=== PATIENT | female | born 1955 | race Caucasian/White ===

== ENCOUNTER → 2018-07-26 11:49 | Outpatient (CLI) | payer MEDICARE, OTHER, SELFPAY ==
--- NOTE | 2018-07-26 | DI.MG.S_ITS ---
BILATERAL DIGITAL SCREENING MAMMOGRAM 3D/2D WITH CAD: 07/26/2018 CLINICAL: Routine screening. Comparison is made to exams dated: 07/31/2016 mammogram, 08/15/2013 mammogram, and 04/13/2012 mammogram - [facility]. There are scattered fibroglandular elements in both breasts. Current study was also evaluated with a Computer Aided Detection (CAD) system. No significant masses, calcifications, or other findings are seen in either breast. There has been no significant interval change. IMPRESSION: NEGATIVE There is no mammographic evidence of malignancy. A 1 year screening mammogram is recommended. This exam was interpreted at Station ID: [id number]. NOTE: For mammograms, a report in lay terms will be sent to the patient. Approximately 15% of breast malignancies will not be visualized mammographically. In the management of a palpable breast mass, a negative mammogram must not discourage biopsy of a clinically suspicious lesion. Electronically Signed By: Lore frye/jazmin:07/26/2018 14:33:20 letter sent: Normal Exam ACR BI-RADS Category 1: Negative 3341F
== END ==
PROVIDERS: PCP Family Medicine; Visit Provider Family Medicine
DX: Z12.31 Encounter for screening mammogram for malignant neoplasm of breast (principal)
CPT/HCPCS: 77063; 77067

== ENCOUNTER → 2020-06-21 11:32 | Outpatient (CLI) | payer MEDICARE, OTHER, SELFPAY ==
[2020-06-24 07:44] LABS: COVID19 Sendout Not Detected (Not Detect)
== END ==
PROVIDERS: PCP Family Medicine; Visit Provider Physician Assistant
DX: Z11.59 Encounter for screening for other viral diseases (principal)
CPT/HCPCS: 87635

== ENCOUNTER 2020-06-24 10:25 | Day surgery (SDC) | payer MEDICARE, OTHER, SELFPAY ==
[2020-06-19 13:19] VITALS: BMI 36.3
[2020-06-24] VITALS (8 sets, daily range): BP systolic 98–146; BP diastolic 64–83; PULSE 64–96; RESP 12–17; TEMP 36.1–36.8; O2SAT 96–97; BMI 35.4
--- NOTE | 2020-06-24 | PATH_ITS ---
[facility] Accession Number: [id number] . 01 Material submitted: . PART A: endocervix - ENDOCERVICAL SWAB/BRUSHING PART B: endometrium - ENDOMETRIAL . 02 Diagnosis: A. Endocervix, Biopsy: Endocervical mucosa with features suggestive of nabothian cyst. No evidence of neoplasm. . B. Endometrium, Biopsy: Endometrial mucosa with cystic atrophy. Prominent smooth muscle bundles, suggestive of submucosal leiomyoma. Negative for atypical hyperplasia or malignancy. MRV 06/26/2020 1234 Local . 02 Electronically signed: . Etienne Dubon MD, PhD, Pathologist NPI- [id number] . 01 Gross description: . A. Received in formalin, labeled endocervical, and consists of multiple miranda-pink fragments of soft tissue admixed with mucus and clotted blood measuring 2.5 x 2.5 x 0.5 cm in aggregate. The specimen is filtered and entirely submitted in cassette A1. B. Received in formalin, labeled endometrial, and consists of multiple miranda-pink fragments of soft tissue measuring 3.0 x 3.0 x1.0 cm in aggregate. The specimen is entirely submitted in cassettes B1-B2. (EA:[id number]) /MRV 06/25/2020 1544 Local . 02 Pathologist provided ICD-10: N95.0 . 02 CPT . 153878, [id number] Performed at: 01 [facility] [address], [place], [place] [id number] MD Bradley Lu MD Phone: [phone] Performed at: [address] [facility] [address] [place], [place] [id number] MD Morelia Whitney MD Phone: [phone]
[2020-06-24] MEDS: LACTATED RINGERS 1,000 ML 100 ML IV (10:56)
--- NOTE | 2020-06-24 12:11 | PM.PREOP ---
Pre-operative Note COVID-19 COVID-19 status: Negative Result date/Date tested (Pos, Neg/Pending): 06/21/20 Interval Note History & Physical reviewed/Exam performed by Physician: Yes Changes to H&P: No H&P completed within 30 days and has changed as indicated here:: 06/18/20
--- NOTE | 2020-06-24 12:28 | SUR.OPER ---
Lithotomy on padded OR bed, head on pillow, arms secured on padded arm boards at <90 degrees abduction. Legs secured in padded yellow fins stirrups.
--- NOTE | 2020-06-24 13:16 | P.OP_ITS ---
Operative Date/Time/Diagnoses Date of procedure: 06/24/20 Time of procedure: 13:16 Pre-op diagnosis: Postmenopausal bleeding Endometrial hyperplasia Endocervical polyp Post-op diagnosis: same Procedure & Clinicians Procedure: Procedures Operation Date: 06/24/20 11:45 Actual Procedures Side Surgeon elder Medina&Stefany Hysteroscopy Polypectomies Iris Lord MD Indications: Postmenopausal bleeding Endometrial hyperplasia by ultrasound Endocervical polyp Surgeon: Iris Lord Anesthesia Type: General (LMA) Operative Notes Findings: Seven week size anteverted uterus Multiple polyps/fibroids in the uterus Endocervical polyp Closure Type: not applicable Specimen(s): endometrial curettings, endometrial polyp and other (Endocervical curetting/endocervical polyp) Estimated blood loss (mL): 10 Blood products transfused: none Procedure in detail: After informed consent was obtained, the patient was taken to the operating room where she was placed in the dorsal supine position. After adequate LMA general anesthesia was achieved, she was placed in the dorsal lithotomy position, and prepped and draped in the usual sterile fashion. A time-out was performed. A bivalve speculum was placed into the vagina and the anterior lip of the cervix grasped with a single-tooth tenaculum. Sharp curettage of the endocervical canal was performed. The cervical os was sequentially dilated until the hysteroscope could pass easily into the endometrial cavity. Initial inspection with the hysteroscope revealed approximately 8 fibroids/polyps. The hysteroscope was removed. The polyp forceps were used to remove a large number of polyps. When the hysteroscope passed easily into the endometrial cavity again, there were no masses visible. Sharp curettage of the endometrial canal was performed. Using the 15 mm loop with settings at 60 cut and 40 coag, the endocervical polyp was excised. The base of the cervix was cauterized with the Bovie for hemostasis. The single- tooth tenaculum was removed from the anterior lip of the cervix. The bivalve speculum was removed from the vagina. Sponge, lap, and instrument counts were correct x2. The patient tolerated the procedure well, and was taken to PACU in stable condition. Complications: none Post-operative Condition: stable Disposition: PACU Plan for aftercare: Home after recovery
--- NOTE | 2020-06-24 14:26 | SUR.PHASEII ---
1418-Pt dcd via wc in stable condition
== END 2020-06-24 14:18 | disposition home or self-care (01) ==
PROVIDERS: PCP Family Medicine; Referring Provider Family Medicine; Visit Provider Obstetrics & Gynecology
PROC: 0UDB8ZZ Extraction of Endometrium, Via Natural or Artificial Opening Endoscopic (ICD-10-PCS; CPT 58558; principal; 2020-06-24 11:45)
DX: N84.1 Polyp of cervix uteri (principal); N84.0 Polyp of corpus uteri
CPT/HCPCS: 58558; J1100; J1885; J2405; J2704; J3010

== ENCOUNTER → 2020-07-06 11:18 | Outpatient (CLI) | payer MEDICARE, OTHER, SELFPAY ==
[2020-07-06 11:40] LABS: COVID19 -Nasal RAPID Negative (Negative)
== END ==
PROVIDERS: PCP Family Medicine; Visit Provider Physician Assistant
DX: Z11.59 Encounter for screening for other viral diseases (principal)
CPT/HCPCS: 87635

== ENCOUNTER → 2020-07-09 11:48 | Outpatient (CLI) | payer MEDICARE, OTHER, SELFPAY ==
--- NOTE | 2020-07-09 | DI.MG.S_ITS ---
BILATERAL DIGITAL SCREENING MAMMOGRAM 3D/2D WITH CAD: 07/09/2020 CLINICAL: Routine screening. Family history of breast cancer. Comparison is made to exams dated: 07/26/2018 mammogram, 07/31/2016 mammogram, and 08/15/2013 mammogram - [facility]. The tissue of both breasts is predominantly fatty. Current study was also evaluated with a Computer Aided Detection (CAD) system. No significant masses, calcifications, or other findings are seen in either breast. There has been no significant interval change. IMPRESSION: NEGATIVE There is no mammographic evidence of malignancy. A 1 year screening mammogram is recommended. This exam was interpreted at Station ID: [id number]. NOTE: For mammograms, a report in lay terms will be sent to the patient. Approximately 15% of breast malignancies will not be visualized mammographically. In the management of a palpable breast mass, a negative mammogram must not discourage biopsy of a clinically suspicious lesion. Electronically Signed By: Lore frye/jazmin:07/16/2020 11:28:50 letter sent: Normal Exam ACR BI-RADS Category 1: Negative 3341F
== END ==
PROVIDERS: PCP Family Medicine; Referring Provider Family Medicine; Visit Provider Family Medicine
DX: Z12.31 Encounter for screening mammogram for malignant neoplasm of breast (principal); Z80.3 Family history of malignant neoplasm of breast
CPT/HCPCS: 77063; 77067

== ENCOUNTER → 2020-09-10 12:05 | Outpatient (CLI) | payer MEDICARE, OTHER, SELFPAY ==
[2020-09-10] MEDS: COVID-19 VACC #1, MRNA(MOD) 100 MCG/0.5 ML VIAL IM (12:13)
== END ==
PROVIDERS: PCP Family Medicine; Visit Provider Internal Medicine
DX: Z23 Encounter for immunization (principal)
CPT/HCPCS: 0011A; 91301

== ENCOUNTER → 2020-10-08 12:17 | Outpatient (CLI) | payer MEDICARE, OTHER, SELFPAY ==
[2020-10-08] MEDS: COVID-19 VACC #2, MRNA(MOD) 100 MCG/0.5 ML VIAL IM (12:25)
== END ==
PROVIDERS: PCP Family Medicine; Visit Provider Internal Medicine
DX: Z23 Encounter for immunization (principal)
CPT/HCPCS: 0012A; 91301

== ENCOUNTER → 2022-11-23 | Outpatient (CLI) | payer MEDICARE, OTHER, SELFPAY ==
--- NOTE | 2022-11-23 | DI.MG.S_ITS ---
BILATERAL DIGITAL SCREENING MAMMOGRAM 3D/2D WITH CAD: 11/23/2022 CLINICAL: Routine screening. Family history of breast cancer. Comparison is made to exams dated: 07/09/2020 mammogram, 07/26/2018 mammogram, and 07/31/2016 mammogram - [facility]. Both breasts are almost entirely fatty (category a/<25% glandular tissue). Current study was also evaluated with a Computer Aided Detection (CAD) system. There is a biopsy clip in the right breast. No significant masses, calcifications, or other findings are seen in either breast. There has been no significant interval change. IMPRESSION: NEGATIVE There is no mammographic evidence of malignancy. A 1 year screening mammogram is recommended. Based on the Tyrer Cuzick model (a risk assessment model) the patient's lifetime risk is 2.5% and her 10 year risk is 1.5%. According to the ACR, ACS, and NCCN guidelines, an annual breast MRI exam along with mammogram is recommended if the patient's lifetime risk is 20% or greater. This exam was interpreted at Station ID: [id number]. NOTE: For mammograms, a report in lay terms will be sent to the patient. Approximately 15% of breast malignancies will not be visualized mammographically. In the management of a palpable breast mass, a negative mammogram must not discourage biopsy of a clinically suspicious lesion. Electronically Signed By: Bing kirk/jazmin:11/23/2022 13:37:38 letter sent: Normal Exam ACR BI-RADS Category 1: Negative 3341F
--- NOTE | 2022-11-23 | DI.RAD.S_ITS ---
Bone Density Report Name: DEBBIE BURNHAM Age: 67 Sex: Female Ethnicity: White Date of : 1955 Indication: postmenopausal; screening for osteoporosis; Referring Provider: UNSPECIFIED Study: Bone densitometry was performed. Exam Date: November 23, 2022 Accession number: [id number] Bone Density: Region BMD T-score Z-score Classification AP Spine(L1, L2, L3) 1.058 0.4 2.4 Normal Femoral Neck (Left) 0.725 -1.1 0.7 Osteopenia Total Hip (Left) 0.900 -0.3 1.1 Normal Femoral Neck (Right) 0.695 -1.4 0.4 Osteopenia Total Hip (Right) 0.922 -0.2 1.3 Normal Total Hip Mean 0.911 -0.3 1.2 Normal World Health Organization criteria for BMD impression classify patients as: Normal (T-score at or above -1.0), Osteopenia (T-score between -1.0 and -2.5), or Osteoporosis (T-score at or below -2.5). 10-year Fracture Risk(1): Major Osteoporotic Fracture 9.1% Hip Fracture 1.1% Reported Risk Factors: [place] (), Neck BMD=0.695, BMI=32.4 (1) FRAX(R) Version 3.08. Fracture probability calculated for an untreated patient. Fracture probability may be lower if the patient has received treatment. Impression: The patient has low bone mass, based on the Right Femoral Neck T-score. The patient has an estimated ten-year risk of hip fracture of 1.1% and an estimated ten-year risk of major fracture of 9.1%, based on the WHO FRAX algorithm. Discussion: BONE DENSITY IS LOW AT ONE OR MORE SKELETAL SITES. This patient's lowest T-score is low at one or more skeletal sites. It meets the World Health Organization's (WHO) criteria for low bone mass (T-score between -1.0 and -2.5). The patient's 10-year risk of fracture as calculated by FRAX is less than the threshold where pharmacological therapy is recommended by the National Osteoporosis Foundation (NOF). However, all treatment decisions require clinical judgment and consideration of individual patient factors, including patient preferences, comorbidities, previous drug use, risk factors not captured in the FRAX model (e.g., frailty, falls, vitamin D deficiency, increased bone turnover, interval significant decline in bone density) and possible under or overestimation of fracture risk by FRAX. The patient should follow a healthful lifestyle (good nutrition with adequate calcium and vitamin D, and appropriate weight-bearing exercise). Follow-Up: Consider repeating this study in 2 to 3 years to reassess this patient's status, or sooner if there is some new clinical indication. Reported by: CHUN ZUNIGA M.D. on 11/23/2022 11:50:00 AM.
== END ==
LOC: RAD 11:08
PROVIDERS: PCP Nurse Practitioner; Referring Provider Nurse Practitioner; Visit Provider Nurse Practitioner
DX: Z78.0 Asymptomatic menopausal state (principal); Z12.31 Encounter for screening mammogram for malignant neoplasm of breast; Z80.3 Family history of malignant neoplasm of breast; Z13.820 Encounter for screening for osteoporosis; M85.851 Other specified disorders of bone density and structure, right thigh
CPT/HCPCS: 77063; 77067; 77080

== ENCOUNTER → 2024-05-08 12:41 | Outpatient (CLI) | payer MEDICARE, OTHER, SELFPAY ==
--- NOTE | 2024-05-08 12:43 | DI.MG.S_ITS ---
BILATERAL DIGITAL SCREENING MAMMOGRAM 3D/2D WITH CAD: 05/08/2024 CLINICAL: Routine screening. Family history of breast cancer. Comparison is made to exams dated: 11/23/2022 mammogram, 07/09/2020 mammogram, and 07/26/2018 mammogram - [facility]. There are scattered areas of fibroglandular density (category b / 25%-50% glandular tissue). Current study was also evaluated with a Computer Aided Detection (CAD) system. There is a biopsy clip in the right breast. No significant masses, calcifications, or other findings are seen in either breast. There has been no significant interval change. IMPRESSION: BENIGN There is no mammographic evidence of malignancy. A 1 year screening mammogram is recommended. Based on the Tyrer Cuzick model (a risk assessment model) the patient's lifetime risk is 3.6% and her 10 year risk is 2.3%. According to the ACR, ACS, and NCCN guidelines, an annual breast MRI exam along with mammogram is recommended if the patient's lifetime risk is 20% or greater. This exam was interpreted at Station ID: [id number]. NOTE: For mammograms, a report in lay terms will be sent to the patient. Approximately 15% of breast malignancies will not be visualized mammographically. In the management of a palpable breast mass, a negative mammogram must not discourage biopsy of a clinically suspicious lesion. Electronically Signed By: Theodora Castellano M.D., Ph.D. rosalinda/jazmin:05/09/2024 09:26:50 letter sent: Normal Exam ACR BI-RADS Category 2: Benign
== END ==
PROVIDERS: PCP Nurse Practitioner; Referring Provider Nurse Practitioner; Visit Provider Nurse Practitioner
DX: Z12.31 Encounter for screening mammogram for malignant neoplasm of breast (principal); Z80.3 Family history of malignant neoplasm of breast
CPT/HCPCS: 77063; 77067

== ENCOUNTER → 2025-05-18 16:51 | Outpatient (CLI) | payer MEDICARE, OTHER, SELFPAY ==
--- NOTE | 2025-05-18 16:54 | DI.MG.S_ITS ---
MM screening mammo BI: 05/18/2025. BI-RADS: 2 CLINICAL: 69-year old female for bilateral screening mammogram. Tyrer-Cuzick lifetime risk of 3.7%. No personal or first-degree family history of breast cancer. Current reported family history of breast cancer: paternal aunt's daughter and second paternal aunt's daughter. The patient had a prior right breast biopsy. PRIOR EXAMS 05/08/2024, 11/23/2022, 07/09/2020, 07/26/2018. MAMMOGRAPHY TECHNIQUE: 2D and 3D (tomosynthesis) digital mammographic views obtained, with additional images as needed for full coverage. Current study was also evaluated with a Computer Aided Detection (CAD) system. DENSITY B. There are scattered areas of fibroglandular density. MAMMOGRAPHY FINDINGS Right: Biopsy marker present on the right. There are no suspicious masses, calcifications, or other findings in the breast. Left: No suspicious mass, asymmetry, microcalcification, or other abnormality seen. IMPRESSION: Right * No evidence of malignancy with benign findings. Left * No evidence of malignancy. RECOMMENDATIONS Bilateral * Annual screening mammography. OVERALL ASSESSMENT CATEGORY BI-RADS-2: Benign. The [employer] recommends annual screening mammography beginning at age 40 for women with average risk of breast cancer. ELECTRONICALLY SIGNED: Paulie Hughes M.D. on 05/19/2025 at 09:56:32 PM PT Interpreting Station ID: [id number]
== END ==
PROVIDERS: PCP Family Medicine; Referring Provider Family Medicine; Visit Provider Family Medicine
DX: Z12.31 Encounter for screening mammogram for malignant neoplasm of breast (principal); Z80.3 Family history of malignant neoplasm of breast
CPT/HCPCS: 77063; 77067